=== PATIENT | male | born 1950 | race Caucasian/White ===

== ENCOUNTER 2017-02-09 02:55 | Emergency (ER) | payer OTHER ==
--- NOTE | 2017-02-09 03:52 | ED CLINICAL REPORT ---
Clinical Report - Physicians/Mid Levels [facility] [address] [place] [address] 02/09/2017 2:55 Patient: BE DE GUZMAN Time Seen: 03:05. Arrived- By private vehicle. Historian- patient. HISTORY OF PRESENT ILLNESS Chief Complaint: SKIN RASH and TENDER AREA. This started several days ago; Mr. De Guzman believes that he has a rash from a spider bite. There was no known instance of spider bite. and is still present. It was abrupt in onset. It is described as painful. It has been located on the neck. A cause has been identified. Similar symptoms previously: None. REVIEW OF SYSTEMS No fever, sore throat, cough, difficulty breathing or abdominal pain. PAST HISTORY Myren Ops: GB PROBLEMS: Skin cancer.- recently excised UTI - Urinary Tract Infection. Gastroesophageal Reflux Disease. ADDITIONAL SURGERIES: Cholecystectomy. SOCIAL HISTORY Never smoker. ADDITIONAL NOTES The nursing notes have been reviewed. PHYSICAL EXAM Vital Signs: 02/09/2017 03:04 BP: 158/86. HR: 72. RR: 16. O2 saturation: 97%. Temp: 97.9 F. Pain level now: 2/10. Respiratory: No respiratory distress. Breath sounds normal. Skin: No cellulitis. The rash is vesicular, fine and papular. Rash present on the posterior neck (dermatomal distribution). No abscess. Neuro: No alteration in mental status. PROGRESS AND PROCEDURES Course of Care: This is shingles. CLINICAL IMPRESSION Herpes zoster. INSTRUCTIONS (YOU HAVE SHINGLES STAY CLEAR OF WOMEN YOU COULD GIVE SOME ONE CHICKENPOX IF THEY HAVE NEVER HAD IT.). Prescription Medications: Hydrocodone/APAP 5mg / 325mg: take 1-2 orally every 4 hours as needed for pain. Dispense twenty (20). No refill. Acyclovir 800 mg: Take 1 orally every 4 hours (five times daily) for 10 days. No refill. Follow-up: Follow up with your doctor in seven days. Understanding of the discharge instructions verbalized by patient. (Electronically signed by Shaq Simon MD 02/10/2017 12:06)
--- NOTE | 2017-02-09 03:52 | ED NURSING NOTES ---
Clinical Report - Nurses [facility] [place] [address] [address] [place] [address] 02/09/2017 2:55 Patient: BE NEWSOME TRIAGE Triage time 03:04. Acuity: LEVEL 4. Chief Complaint: SPIDER BITE. 03:10. Alert. SEPSIS SCREEN: Sepsis Screen. Negative (no infection suspected/documented). --03:10 Leroy Stone R.N. 03:04 02/09/17. BP: 158/86. HR: 72. RR: 16. O2 saturation: 97% on room air. Temp: 97.9 F (oral). Pain level now: 12/18. --03:10 Leroy Stone R.N. Chief Complaint: SKIN RASH. --03:10 Leroy Stone R.N. Weight: 99.7 kg stated. Height/Length: 74 inches Per Patient. BMI: 28.2. --03:06 Leroy Stone R.N. Medications None. --03:07 Leroy Stone R.N. Allergies Minocin. --03:07 Leroy Stone R.N. Medication/allergy information source: the patient. --03:10 Leroy Stone R.N. History Arrived by private vehicle. Historian: patient. Unaccompanied. Primary physician (Jairo). Location of injuries: neck. This occurred (2 days ago). 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 PAST MEDICAL HX: Tetanus status: up-to-date. Immunizations: up-to-date. SOCIAL HX: Never smoker. Occasional alcohol use. No drug use. No infectious disease exposure. ABUSE ASSESSMENT: No report of abuse. FALL RISK ASSESSMENT: Fall risk assessment completed. No fall risk identified. NUTRITIONAL RISK ASSESSMENT: The nutritional risk assessment revealed no deficiencies. FUNCTIONAL ASSESSMENT: Functional assessment: no impairments noted. LEARNING NEEDS ASSESSMENT: The learning needs assessment revealed no barriers. SKIN INTEGRITY ASSESSMENT: Skin integrity risk assessment completed. No skin integrity risk identified. --03:10 Leroy Stone R.N. Reported as located on the neck and chest. --03:10 Leroy Stone R.N. PROBLEMS: Cancer. UTI - Urinary Tract Infection. Gastroesophageal Reflux Disease. --03:08 Leroy Stone R.N. ADDITIONAL SURGERIES: Cholecystectomy. --03:08 Leroy Stone R.N. Interventions ID band on patient. To treatment room. --03:10 Leroy Stone R.N. PHYSICAL ASSESSMENT 03:11. Ambulatory to room. Patient gowned. GENERAL / NEURO / PSYCH: Alert. Oriented X 4. HEENT: Mucous membranes are pink. RESPIRATORY: Respirations not labored. SKIN: Skin is intact, warm and dry. No skin rash. --03:11 Leroy Stone R.N. NURSING PROGRESS NOTES 03:11. Head of bed elevated. Two patient identifiers checked. Call light placed in reach. Bed placed in lowest position. Brakes of bed on. Patient ready for evaluation- chart flagged. --03:11 Leroy Stone R.N. 03:54. The patient is calm and resting quietly. RESPIRATORY: No respiratory distress. SKIN: Skin is warm and dry. Skin color within normal limits. --04:00 Leroy Stone R.N. DISPOSITION / DISCHARGE Departure time: 0356. Condition at departure: stable. No learning barriers present. Discharge instructions provided and reviewed with the patient. Reviewed medication(s) side effects, precautions, dosing and course information. Prescription(s) given to the patient. Written instructions provided in Andorran. The patient was discharged home and unaccompanied at time of discharge. He left the Emergency Department ambulatory and via private vehicle. Patient driving. FALL RISK ASSESSMENT: Fall risk assessment completed. No fall risk identified. --04:00 Leroy Stone R.N. Locked/Released at 02/09/2017 4:01 by Leroy Stone R.N.
--- NOTE | 2017-02-09 03:52 | ED CLINICAL REPORT ---
Clinical Report - Physicians/Mid Levels [facility] [address] [place] [address] 02/09/2017 2:55 Patient: BE DE GUZMAN Time Seen: 03:05. Arrived- By private vehicle. Historian- patient. HISTORY OF PRESENT ILLNESS Chief Complaint: SKIN RASH and TENDER AREA. This started several days ago; Mr. De Guzman believes that he has a rash from a spider bite. There was no known instance of spider bite. and is still present. It was abrupt in onset. It is described as painful. It has been located on the neck. A cause has been identified. Similar symptoms previously: None. REVIEW OF SYSTEMS No fever, sore throat, cough, difficulty breathing or abdominal pain. PAST HISTORY Myren Ops: GB PROBLEMS: Skin cancer.- recently excised UTI - Urinary Tract Infection. Gastroesophageal Reflux Disease. ADDITIONAL SURGERIES: Cholecystectomy. SOCIAL HISTORY Never smoker. ADDITIONAL NOTES The nursing notes have been reviewed. PHYSICAL EXAM Vital Signs: 02/09/2017 03:04 BP: 158/86. HR: 72. RR: 16. O2 saturation: 97%. Temp: 97.9 F. Pain level now: 2/10. Respiratory: No respiratory distress. Breath sounds normal. Skin: No cellulitis. The rash is vesicular, fine and papular. Rash present on the posterior neck (dermatomal distribution). No abscess. Neuro: No alteration in mental status. PROGRESS AND PROCEDURES Course of Care: This is shingles. CLINICAL IMPRESSION Herpes zoster. INSTRUCTIONS (YOU HAVE SHINGLES STAY CLEAR OF WOMEN YOU COULD GIVE SOME ONE CHICKENPOX IF THEY HAVE NEVER HAD IT.). Prescription Medications: Hydrocodone/APAP 5mg / 325mg: take 1-2 orally every 4 hours as needed for pain. Dispense twenty (20). No refill. Acyclovir 800 mg: Take 1 orally every 4 hours (five times daily) for 10 days. No refill. Follow-up: Follow up with your doctor in seven days. Understanding of the discharge instructions verbalized by patient. (Electronically signed by Shaq Simon MD 02/10/2017 12:06)
--- NOTE | 2017-02-09 03:52 | ED NURSING NOTES ---
Clinical Report - Nurses [facility] [place] [address] 02/09/2017 2:55 Patient: BE NEWSOME TRIAGE Triage time 03:04. Acuity: LEVEL 4. Chief Complaint: SPIDER BITE. 03:10. Alert. SEPSIS SCREEN: Sepsis Screen. Negative (no infection suspected/documented). --03:10 Leroy Stone R.N. 03:04 02/09/17. BP: 158/86. HR: 72. RR: 16. O2 saturation: 97% on room air. Temp: 97.9 F (oral). Pain level now: 12/18. --03:10 Leroy Stone R.N. Chief Complaint: SKIN RASH. --03:10 Leroy Stone R.N. Weight: 99.7 kg stated. Height/Length: 74 inches Per Patient. BMI: 28.2. --03:06 Leroy Stone R.N. Medications None. --03:07 Leroy Stone R.N. Allergies Minocin. --03:07 Leroy Stone R.N. Medication/allergy information source: the patient. --03:10 Leroy Stone R.N. History Arrived by private vehicle. Historian: patient. Unaccompanied. Primary physician (Jairo). Location of injuries: neck. This occurred (2 days ago). 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 PAST MEDICAL HX: Tetanus status: up-to-date. Immunizations: up-to-date. SOCIAL HX: Never smoker. Occasional alcohol use. No drug use. No infectious disease exposure. ABUSE ASSESSMENT: No report of abuse. FALL RISK ASSESSMENT: Fall risk assessment completed. No fall risk identified. NUTRITIONAL RISK ASSESSMENT: The nutritional risk assessment revealed no deficiencies. FUNCTIONAL ASSESSMENT: Functional assessment: no impairments noted. LEARNING NEEDS ASSESSMENT: The learning needs assessment revealed no barriers. SKIN INTEGRITY ASSESSMENT: Skin integrity risk assessment completed. No skin integrity risk identified. --03:10 Leroy Stone R.N. Reported as located on the neck and chest. --03:10 Leroy Stone R.N. PROBLEMS: Cancer. UTI - Urinary Tract Infection. Gastroesophageal Reflux Disease. --03:08 Leroy Stone R.N. ADDITIONAL SURGERIES: Cholecystectomy. --03:08 Leroy Stone R.N. Interventions ID band on patient. To treatment room. --03:10 Leroy Stone R.N. PHYSICAL ASSESSMENT 03:11. Ambulatory to room. Patient gowned. GENERAL / NEURO / PSYCH: Alert. Oriented X 4. HEENT: Mucous membranes are pink. RESPIRATORY: Respirations not labored. SKIN: Skin is intact, warm and dry. No skin rash. --03:11 Leroy Stone R.N. NURSING PROGRESS NOTES 03:11. Head of bed elevated. Two patient identifiers checked. Call light placed in reach. Bed placed in lowest position. Brakes of bed on. Patient ready for evaluation- chart flagged. --03:11 Leroy Stone R.N. 03:54. The patient is calm and resting quietly. RESPIRATORY: No respiratory distress. SKIN: Skin is warm and dry. Skin color within normal limits. --04:00 Leroy Stone R.N. DISPOSITION / DISCHARGE Departure time: 0356. Condition at departure: stable. No learning barriers present. Discharge instructions provided and reviewed with the patient. Reviewed medication(s) side effects, precautions, dosing and course information. Prescription(s) given to the patient. Written instructions provided in Burkinan. The patient was discharged home and unaccompanied at time of discharge. He left the Emergency Department ambulatory and via private vehicle. Patient driving. FALL RISK ASSESSMENT: Fall risk assessment completed. No fall risk identified. --04:00 Leroy Stone R.N. Locked/Released at 02/09/2017 4:01 by Leroy Stone R.N.
--- NOTE | 2017-02-10 12:06 | ED DISCHARGE INSTRUCTIONS ---
Patient: BE NEWSOME General Instructions [facility] VisitID: [id number] [place] [address] 66y, M Registration Date/Time: 02/09/2017 Herpes zoster. INSTRUCTIONS (YOU HAVE SHINGLES STAY CLEAR OF WOMEN YOU COULD GIVE SOME ONE CHICKENPOX IF THEY HAVE NEVER HAD IT.). Prescription Medications: Hydrocodone/APAP 5mg / 325mg: take 1-2 orally every 4 hours as needed for pain. Dispense twenty (20). No refill. Acyclovir 800 mg: Take 1 orally every 4 hours (five times daily) for 10 days. No refill. Follow-up: Follow up with your doctor in seven days. Understanding of the discharge instructions verbalized by patient. ADDITIONAL INFORMATION Shingles Anyone who has had chicken pox may get shingles later in life. It is caused by the same virus that has remained dormant (asleep) in your body. Shingles usually occurs in adults over the age of 50 or those with lowered immunity (cancer treatment, prolonged steroid use, HIV or AIDS). It starts as a tingling patch of skin on one side of the body. During the first several days small painful blisters appear in this area. However, unlike chicken pox the rash does not spread to the rest of the body. The blister fluid contains the virus. Exposure to shingles cannot cause shingles. However, it can cause chicken pox in anyone who has never had chicken pox before. The contagious period ends when all blisters have crusted over (usually about two weeks after the illness begins). Scarring may occur where the blisters appear. Sometimes there is continued sensitivity and pain in the involved patch of skin for months after the infection (neuralgia). Persons older than 50 or those with a weakened immune system may be treated with antiviral medicines to reduce pain, shorten the illness and prevent neuralgia. Zostavax is a vaccine that can help prevent shingles or make it less painful. It is recommended for adults over the age of 60 who have had chicken pox in the past, but not shingles. Adults over 60 who have had neither chicken pox nor shingles can prevent both diseases with a Varicella vaccine. Home Care: You may use acetaminophen (Tylenol) or ibuprofen (Motrin, Advil) to control pain, unless another medicine was prescribed. [NOTE: If you have chronic liver or kidney disease or ever had a stomach ulcer or GI bleeding, talk with your doctor before using these medicines.] (Aspirin should never be used in anyone under 18 years of age who is ill with a fever. It may cause severe liver damage.) To relieve itching and pain, make a solution of cool water mixed with cornstarch, baking soda, Aveeno Oatmeal, or Domeboro powder (available without a prescription). Apply the solution as a compress to the area. This will soothe the skin. Calamine or Caladryl lotion may help. Oral Benadryl (diphenhydramine) is an antihistamine available at drug and grocery stores. Unless a prescription antihistamine was given, Benadryl may be used to reduce itching if large areas of the skin are involved. Use lower doses during the daytime and higher doses at bedtime since the drug may make you sleepy. [NOTE: Do not use Benadryl if you have glaucoma or if you are a man with trouble urinating due to an enlarged prostate.] Claritin (loratidine) is an antihistamine that causes less drowsiness and is a good alternative for daytime use. Wash skin with soap and water to keep rash free of infection. Trim fingernails to prevent scratching. Scratching the sores may leave scars. Stay home from work or school until all blisters have formed a crust and you are no longer contagious. Follow Up with your doctor or as directed by our staff if the above measures do not bring relief. GET PROMPT MEDICAL ATTENTION if any of the following occur: Headache or stiff neck Increasing drowsiness, confusion or bizarre behavior Cough with trouble breathing or fast breathing (over 25 breaths per minute) Pain, redness or swelling of a joint Fever of 100.4F (38C) or higher, or as directed by your healthcare provider Eye pain or changes in vision or sores that appear near the eye Signs of skin infection (yellow or white drainage from the sores, increasing redness or pain) Weakness or numbness of an arm or leg Difficulty speaking, swallowing or walking Seizure Hydrocodone Bitartrate, Acetaminophen Oral tablet What is this medicine? ACETAMINOPHEN; HYDROCODONE (a set a JOSIE monica fen; heidi droe KOE done) is a pain reliever. It is used to treat mild to moderate pain. How should I use this medicine? Take this medicine by mouth. Swallow it with a full glass of water. Follow the directions on the prescription label. If the medicine upsets your stomach, take the medicine with food or milk. Do not take more than you are told to take. Talk to your transportation security screener regarding the use of this medicine in children. This medicine is not approved for use in children. What side effects may I notice from receiving this medicine? Side effects that you should report to your doctor or health human services care specialist as soon as possible: allergic reactions like skin rash, itching or hives, swelling of the face, lips, or tongue breathing problems confusion feeling faint or lightheaded, falls stomach pain yellowing of the eyes or skin Side effects that usually do not require medical attention (report to your doctor or health human services care specialist if they continue or are bothersome): nausea, vomiting stomach upset What may interact with this medicine? alcohol antihistamines isoniazid medicines for depression, anxiety, or psychotic disturbances medicines for sleep muscle relaxants naltrexone narcotic medicines (opiates) for pain phenobarbital ritonavir tramadol What if I miss a dose? If you miss a dose, take it as soon as you can. If it is almost time for your next dose, take only that dose. Do not take double or extra doses. Where should I keep my medicine? Keep out of the reach of children. This medicine can be abused. Keep your medicine in a safe place to protect it from theft. Do not share this medicine with anyone. Selling or giving away this medicine is dangerous and against the law. Store at room temperature between 15 and 30 degrees C (59 and 86 degrees F). Protect from light. Keep container tightly closed. Throw away any unused medicine after the expiration date. Discard unused medicine and used packaging carefully. Pets and children can be harmed if they find used or lost packages. What should I tell my health care provider before I take this medicine? They need to know if you have any of these conditions: brain tumor Crohn's disease, inflammatory bowel disease, or ulcerative colitis drink more than 3 alcohol-containing drinks per day drug abuse or addiction head injury heart or circulation problems kidney disease or problems going to the bathroom liver disease lung disease, asthma, or breathing problems an unusual or allergic reaction to acetaminophen, hydrocodone, other opioid analgesics, other medicines, foods, dyes, or preservatives or trying to get breast-feeding What should I watch for while using this medicine? Tell your doctor or health human services care specialist if your pain does not go away, if it gets worse, or if you have new or a different type of pain. You may develop tolerance to the medicine. Tolerance means that you will need a higher dose of the medicine for pain relief. Tolerance is normal and is expected if you take the medicine for a long time. Do not suddenly stop taking your medicine because you may develop a severe reaction. Your body becomes used to the medicine. This does NOT mean you are addicted. Addiction is a behavior related to getting and using a drug for a non-medical reason. If you have pain, you have a medical reason to take pain medicine. Your doctor will tell you how much medicine to take. If your doctor wants you to stop the medicine, the dose will be slowly lowered over time to avoid any side effects. You may get drowsy or dizzy when you first start taking the medicine or change doses. Do not drive, use machinery, or do anything that may be dangerous until you know how the medicine affects you. Stand or sit up slowly. There are different types of narcotic medicines (opiates) for pain. If you take more than one type at the same time, you may have more side effects. Give your health care provider a list of all medicines you use. Your doctor will tell you how much medicine to take. Do not take more medicine than directed. Call emergency for help if you have problems breathing. The medicine will cause constipation. Try to have a bowel movement at least every 2 to 3 days. If you do not have a bowel movement for 3 days, call your doctor or health human services care specialist. Too much acetaminophen can be very dangerous. Do not take Tylenol (acetaminophen) or medicines that contain acetaminophen with this medicine. Many non-prescription medicines contain acetaminophen. Always read the labels carefully. You have been given the following additional information: Herpes Zoster Hydrocodone Bitartrate, Acetaminophen Oral tablet (Electronically signed by Shaq Simon MD 02/10/2017 12:06)
--- NOTE | 2017-02-10 12:06 | ED MED RECONCILIATION SUMMARY ---
Patient: BE NEWSOME Medication Reconciliation Report [facility] VisitID: [id number] [address] [place] [address] 66y, M Registration Date/Time: 02/09/2017 Weight: 99.7 kg Height/Length: 74 in. BMI: 28.2 ALLERGIES: Minocin The patient's Home Medications are listed below: NONE. The source(s) of the original Home Medication information: patient The following Medications were given to the patient in the Emergency Department: None. The following Medications were prescribed to the patient: Hydrocodone/APAP 5mg / 325mg: take 1-2 orally every 4 hours as needed for pain. Dispense twenty (20). No refill. -- Shaq Simon MD Acyclovir 800 mg: Take 1 orally every 4 hours (five times daily) for 10 days. No refill. -- Shaq Simon MD
--- NOTE | 2017-02-10 12:06 | ED MAR SUMMARY ---
..... Medication Administration Record [facility] [address] [place], [place] [id number] Patient: BE NEWSOME Visit ID: [id number] 66y, M Weight: 99.7 kg Height/Length: 74 in BMI: 28.2 ALLERGIES: Minocin
--- NOTE | 2017-02-10 12:06 | ED MAR SUMMARY ---
..... Medication Administration Record [facility] [address] [place], [place] [id number] Patient: BE NEWSOME Visit ID: [id number] 66y, M Weight: 99.7 kg Height/Length: 74 in BMI: 28.2 ALLERGIES: Minocin
--- NOTE | 2017-02-10 12:06 | ED MED RECONCILIATION SUMMARY ---
Patient: BE NEWSOME Medication Reconciliation Report [facility] VisitID: [id number] [address] [place] [address] 66y, M Registration Date/Time: 02/09/2017 Weight: 99.7 kg Height/Length: 74 in. BMI: 28.2 ALLERGIES: Minocin The patient's Home Medications are listed below: NONE. The source(s) of the original Home Medication information: patient The following Medications were given to the patient in the Emergency Department: None. The following Medications were prescribed to the patient: Hydrocodone/APAP 5mg / 325mg: take 1-2 orally every 4 hours as needed for pain. Dispense twenty (20). No refill. -- Shaq Simon MD Acyclovir 800 mg: Take 1 orally every 4 hours (five times daily) for 10 days. No refill. -- Shaq Simon MD
== END 2017-02-09 03:56 | disposition home or self-care (01) ==
LOC: ED SRH 02:55
DX: B02.9 Zoster without complications (principal)